=== PATIENT | female | born 1970 | race Caucasian/White ===

== ENCOUNTER 2024-06-06 11:07 | Emergency (ER) | payer BC, SELFPAY ==
[2024-06-06 11:11] VITALS: BP 160/90
--- NOTE | 2024-06-06 11:31 | ED.GENMED ---
History of Present Illness
<Мария Mccoy PA-C - Last Filed: 06/06/24 14:11>
General
Chief Complaint: Headache
Source: patient
Exam Limitations: none
Time Seen by Provider: 06/06/24 11:31
Nursing documentation reviewed up to this point in time: agreed with
History of Present Illness
History of Present Illness:
This is a 54 y/o female with PMH of crohn's disease presents emergency department today with right sided blurry vision and right facial paresthesias since this morning. Patient reports that 5 days ago, she was walking to the bathroom in the middle
of the night when she tripped and fell, hitting the right side of her head onto the bathtub and subsequently losing consciousness. Patient states that she also injured the right ribs. Patient states that she woke up and went to bed and hit her
head again when trying to get in the bed. Patient states that since injury, she is felt well and has had no headaches no neck pain. Patient notes right lower rib pain worse with inspiration.
Past History
<SVEN Sarmiento Last Filed: 06/06/24 14:11>
Past History
ED Past Medical History: Other (Crohn's disease, migraines)
ED Past Surgical History: Tonsilectomy
Social History
Tobacco: Non-smoker
Alcohol: Occasional
Personal:
Living: with family
Employment: Employed
Review of Systems
<Мария Mccoy PA-C - Last Filed: 06/06/24 14:11>
Review of Systems
All Other Systems: ROS reviewed and negative except as documented in HPI and ROS
Phy Exam
<Мария Mccoy PA-C - Last Filed: 06/06/24 14:11>
Physical Exam
Physical Exam:
General: Patient is well appearing and in no acute distress; non-toxic
Skin: Warm and dry, no rashes or lesions, small area of ecchymosis over the right upper and lower extremity
Head: Normocephalic, small hematoma over right temporal region
Eyes: Sclera non-icteric. EOMs intact. PERRLA.
Cardiac: Regular rate and rhythm, no murmurs
Pulm: Normal respiratory effort, equal breath sounds bilaterally
Musculoskeletal: Tenderness palpation of the right lower external chest wall, no crepitus
Neuro: CN II-XII intact, no focal neurologic deficits. Sensation intact bilaterally.
Psychiatric: Appropriate mood and affect.
Course
<Мария Mccoy PA-C - Last Filed: 06/06/24 14:11>
Orders/Labs/Results
Orders:
Orders
06/06/24 11:10
EKG [Electrocardiogram (*1)] Urgent
Reason for Study: Vertigo / Dizzy
CT Head W/o Iv Contrast Urgent
Comment:
Reason For Exam: +LOC, dizzy, blurred r eye
EKG- Treatment ONCE
06/06/24 11:14
CR Ribs-right 3 Vw W/pa Chest* Urgent
Comment:
Reason For Exam: fall, rib pain
Vital Signs
Initial and Last Documented VS:
Initial Vital Signs
Temp Pulse Resp BP Pulse Ox
98.0 F 67 16 160/90 99
06/06/24 11:11 06/06/24 11:11 06/06/24 11:11 06/06/24 11:11 06/06/24 11:11
Last Documented Vital Signs
Temp Pulse Resp BP Pulse Ox
98.0 F 58 14 123/71 100
06/06/24 11:11 06/06/24 12:22 06/06/24 12:22 06/06/24 12:22 06/06/24 12:22
<Jack Francis DO - Last Filed: 06/06/24 12:14>
Orders/Labs/Results
Orders:
Orders
06/06/24 11:10
EKG [Electrocardiogram (*1)] Urgent
Reason for Study: Vertigo / Dizzy
CT Head W/o Iv Contrast Urgent
Comment:
Reason For Exam: +LOC, dizzy, blurred r eye
EKG- Treatment ONCE
06/06/24 11:14
CR Ribs-right 3 Vw W/pa Chest* Urgent
Comment:
Reason For Exam: fall, rib pain
Vital Signs
Initial and Last Documented VS:
Initial Vital Signs
Temp Pulse Resp BP Pulse Ox
98.0 F 67 16 160/90 99
06/06/24 11:11 06/06/24 11:11 06/06/24 11:11 06/06/24 11:11 06/06/24 11:11
Last Documented Vital Signs
Temp Pulse Resp BP Pulse Ox
98.0 F 58 14 123/71 100
06/06/24 11:11 06/06/24 12:22 06/06/24 12:22 06/06/24 12:22 06/06/24 12:22
Abigaillt;Мария Mccoy PA-C - Last Filed: 06/06/24 14:11>
MDM/Problems Addressed
Differential Diagnosis Includes:
Differentials include concussion, contusion, cluster headache, epidural hematoma, subdural hematoma, retinal detachment, acute glaucoma
MDM/Problems Addressed:
54-year-old female history of Crohn's disease presenting emergency department today with concerns of right-sided facial paresthesias and right eye blurriness following a head trauma few days ago. Patient states that since then felt sore but never
really had a true headache or neck pain associated with this. She also has right-sided lower rib pain. Her neurologic exam is unremarkable. Will obtain chest x-ray as well as CT of the head.
CT of the head negative, chest x-ray negative for pneumothorax or rib fracture. Her vitals are stable, she is not hypoxic. Patient likely experiencing symptoms of concussion. Patient stable for discharge.
Chronic conditions affecting care:
crohn's disease
<Мария Mccoy PA-C - Last Filed: 06/06/24 14:11>
*Pulse Oximetry
Patient hypoxic: no
*Critical Care Note
Total Time (30-74mins, 75-104mins- exclusive of procedures): Not Applicable
Data Reviewed
Review of Other/Old Records Reveals: Records (Reviewed ER physician documentation from 09/20/2022 where patient was seen for headache and blurry vision in the right eye.)
Source: patient and records
Prescriptions/Medications Considered But Not Given:
n/a
Further Testing Considered But Not Given:
m/a
<SVEN Sarmiento Last Filed: 06/06/24 14:11>
Patient Management
Escalation/DeEscalation of care consider admission/obs:
Admit not indicated, patient stable for discharge
ED Attending Note
<SVEN Sarmiento Last Filed: 06/06/24 14:11>
-
Portions of this chart may have been created with voice recognition software.� Occasional wrong word or��sound alike� substitutions may have occurred due to the inherent limitations of voice recognition software.
<Jack Francis DO - Last Filed: 06/06/24 12:14>
ED Attending Note
Patient seen and examined by attending physician: Yes
I performed the substantive portion of visit, reviewed & personally made and approve the management plan that is documented in note by myself or HERIBERTO.: Yes
ED Attending Note:
I agree with Мария's note.
Pt presents complaining of some blurred vision of the right eye. Patient noticed this when she woke up today. Patient states she had a fall about 5 days ago and was concerned it may be related to the fall. No other complaints. No nausea or
vomiting.
General: Awake, Alert, Oriented X3. No acute distress.
Vitals: unremarkable
Head: Atraumatic
Eyes: Pupils equal, EOMI, no injection, no signs of trauma
Throat: Airway intact, no exudates
Neck: Trachea midline
Lungs: Clear and equal b/l
Heart: Regular rate, no murmurs
Abd: Soft, Nontender, No pulsatile mass
Neuro: Nonfocal
Skin: Warm, dry, no rash
Extremities: pulses equal b/l, no edema
Agree with head CT. If this is negative feel patient stable for discharge home and follow-up with ophthalmology as an outpatient
Discharge Plan
Departure
Patient Disposition: Home (Routine Discharge)
Date of Disposition: 06/06/24
Time of Disposition: 13:07
Patient with high blood pressure during this ER visit?: Yes
Condition: Good
Discharge Problem:
Concussion
Instructions: Concussion, Adult ED, BLOOD PRESSURE
Prescriptions:
No Action
clindamycin HCl 300 MG capsule
300 mg PO TID Qty: 20 0RF
Referrals:
Kita Roberson MD [Family Provider] -
Activity Restrictions/Additional Instructions:
Your CAT scan of your head showed no abnormalities. Your chest x-ray did not show any evidence of a rib fracture.
Please return to the emergency department should you have a severe sudden onset headache, persistent nausea and vomiting, dizziness, syncopal episodes, chest pain, shortness of breath, or any other signs or symptoms concerning to you.
Interventions
Interventions:
*Risk Screen - Suicide Last Done: 06/06/24 11:08
*General Assessment Last Done: 06/06/24 11:11
*Neglect/Abuse Screening Last Done: 06/06/24 11:11
ED- Fall Risk Assessment Last Done: 06/06/24 11:28
*ED COVID-19 Vaccine History Last Done: 06/06/24 11:11
*Nursing Disposition Last Done: 06/06/24 13:14
ED- Neurological Assessment Last Done: 06/06/24 11:28
Discharge Date and Time
Discharge Date/Time: 06/06/24 13:18
Print Language: CITIZEN OF [place]
[2024-06-06 12:22] VITALS: BP 123/71; BMI 26.0
== END 2024-06-06 13:18 | disposition home or self-care (01) ==
LOC: EMR 11:07
PROVIDERS: EMERGENCY PHYSICIAN Emergency Medicine; FAMILY PHYSICIAN Obstetrics & Gynecology Gynecology
DX: S06.0XAA Concussion with loss of consciousness status unknown, initial encounter (principal); W19.XXXA Unspecified fall, initial encounter; K50.90 Crohn's disease, unspecified, without complications
CPT/HCPCS: 99285; 70450; 71101; 93005

== ENCOUNTER → 2024-10-18 10:46 | Outpatient (REF) | payer BC, SELFPAY | LOC: WDC 10:46 | PROVIDERS: ATTENDING PHYSICIAN Nurse Practitioner Adult Health; FAMILY PHYSICIAN Nurse Practitioner Family | DX: Z12.31 Encounter for screening mammogram for malignant neoplasm of breast (principal) | CPT/HCPCS: 77063; 77067 ==

== ENCOUNTER → 2024-11-15 09:47 | Outpatient (REF) | payer BC, SELFPAY | LOC: MRI 3T 09:47 | PROVIDERS: ATTENDING PHYSICIAN Specialist; FAMILY PHYSICIAN Nurse Practitioner Family | DX: K50.80 Crohn's disease of both small and large intestine without complications (principal) | CPT/HCPCS: 72197; 74183; A9585 ==